=== PATIENT | female | born 1970 ===

== ENCOUNTER 2016-10-25 10:16 | Emergency (ER) | payer SELFPAY ==
[2016-10-25] MEDS ORDERED: Lidocaine 1% Inj (20ml) ONE (11:05)
--- NOTE | 2016-10-25 11:31 | ED PDOC ---
HPI: Skin/Bite Injury Time Seen by Provider: 10/25/16 10:37 Chief Complaint (Nursing): Abnormal Skin Integrity Chief Complaint (Provider): Abscess History Per: Patient Additional Complaint(s): Patient is a 46 yo female, no PMH, presents to ED with c.o abscess noted to right side of face x 1 month. denies fevers. Past Medical History Reviewed: Nursing Documentation, Vital Signs - Medical History PMH: No Chronic Diseases - Surgical History Surgical History: No Surg Hx - Family History Family History: States: No Known Family Hx - Home Medications Home Medications: Ambulatory Orders Medication Instructions Recorded Methylprednisolone [Medrol Dose 4 mg PO DAILY #21 mg 05/30/16 Pack (21 tabs)] Clindamycin [Cleocin] 300 mg PO BID #14 cap 10/25/16 Ibuprofen [Motrin] 600 mg PO Q6 #20 tab 10/25/16 Mupirocin 2% Cream [Bactroban 30 applic TOP BID #1 tube 10/25/16 Cream] - Allergies Allergies/Adverse Reactions: Allergies Allergy/AdvReac Type Severity Reaction Status Date / Time acetaminophen [From Percocet] Allergy VOMITING Verified 05/30/16 16:48 oxycodone HCl [From Percocet] Allergy VOMITING Verified 05/30/16 16:48 Penicillins Allergy RASH Verified 05/30/16 16:48 Review of Systems ROS Statement: Except As Marked, All Systems Reviewed And Found Negative Skin: Positive for: Other (abscess) Physical Exam - Reviewed Nursing Documentation Reviewed: Yes Vital Signs Reviewed: Yes - Physical Exam Appears: Positive for: Well, Non-toxic, No Acute Distress Head Exam: Positive for: ATRAUMATIC, NORMAL INSPECTION, NORMOCEPHALIC Skin: Positive for: Normal Color, Warm, DRY Eye Exam: Positive for: EOMI, Normal appearance, PERRL ENT: Positive for: Normal ENT Inspection Neck: Positive for: Normal, Painless ROM Cardiovascular/Chest: Positive for: Regular Rate, Rhythm Respiratory: Positive for: CNT, Normal Breath Sounds Gastrointestinal/Abdominal: Positive for: Normal Exam, Bowel Sounds, Soft Back: Positive for: Normal Inspection Extremity: Positive for: Normal ROM Neurologic/Psych: Positive for: Alert, Oriented Comments: tender, fluctuant, erythematous 2 cm pustule noted to right temporal area, no surrounding edema or erythema Medical Decision Making Medical Decision Making: Site incised and drained by tag writer. Advised warm compresses and antibiotics as directed. follow up with derm or plastics. return to ED with any concerns Disposition - Clinical Impression Clinical Impression: Sebaceous cyst - Disposition Referrals: Yony Mckeon MD [Staff Provider] - Disposition Time: 11:31 Condition: STABLE Prescriptions: Clindamycin [Cleocin] 300 mg PO BID #14 cap Ibuprofen [Motrin] 600 mg PO Q6 #20 tab Mupirocin 2% Cream [Bactroban Cream] 30 applic TOP BID #1 tube Instructions: Abscess (ED) Forms: [employer] (Albanian) Print Language: CITIZEN OF [place] Incision and Drainage - Time Time Performed: :31 - Time Out Time Out: Side verified, Site verified - Consent obtained Consent obtained: Verbal - Performed by Performed by: Mid-level Provider - Indications Indications: Cyst - Contraindications Contraindications: None - Location Location: Right - Anesthetic Technique Anesthetic Technique: Local - Anesthetic Anesthetic: Lidocaine 1% - Procedure Procedure: Usual prep and drape, # scalpel used (11) - Drained Drained: ml pus (3) - Post-procedure Post procedure: Dressed - Complications Complications: None
[2016-10-25] MEDS ORDERED: Lidocaine 2% Inj (20ml) SC ONE (11:47)
== END 2016-10-25 11:49 | disposition home or self-care (01) ==
LOC: H.ER 10:16
DX: L72.3 Sebaceous cyst (principal); Z88.0 Allergy status to penicillin

== ENCOUNTER 2018-01-19 17:27 | Emergency (ER) | payer SELFPAY ==
--- NOTE | 2018-01-19 18:02 | ED PDOC ---
HPI: Female Pain Time Seen by Provider: 01/19/18 17:57 Chief Complaint (Nursing): Female Genitourinary Chief Complaint (Provider): labial cyst History Per: Patient History/Exam Limitations: no limitations Onset/Duration Of Symptoms: Days (5 days) Additional Complaint(s): Pt. with tender left labia with a lump. States is painful. No dc. No dysuria. Pt. with vaginal bleeding for 3 weeks. States her period has continued from December 24 when her usual period was. No pelvic pain, abd pain, nausea, vomit, diarrhea, weakness, headaches, back pain. Past Medical History Reviewed: Nursing Documentation, Vital Signs Vital Signs: Last Vital Signs Temp 98.5 F 01/19/18 17:51 Pulse 101 H 01/19/18 17:51 Resp 20 01/19/18 17:51 BP 124/79 01/19/18 17:51 Pulse Ox 100 01/19/18 17:51 - Medical History PMH: No Chronic Diseases - Surgical History Surgical History: - Family History Family History: States: Unknown Family Hx - Living Arrangements Living Arrangements: With Family - Social History Alcohol: None Drugs: Denies - Home Medications Home Medications: Ambulatory Orders Medication Instructions Recorded Methylprednisolone [Medrol Dose 4 mg PO DAILY #21 mg 05/30/16 Pack (21 tabs)] Clindamycin [Cleocin] 300 mg PO BID #14 cap 10/25/16 Ibuprofen [Motrin] 600 mg PO Q6 #20 tab 10/25/16 Mupirocin 2% Cream [Bactroban 30 applic TOP BID #1 tube 10/25/16 Cream] Ibuprofen [Motrin] 600 mg PO TID 7 Days tab 01/19/18 - Allergies Allergies/Adverse Reactions: Allergies Allergy/AdvReac Type Severity Reaction Status Date / Time acetaminophen [From Percocet] Allergy VOMITING Verified 05/30/16 16:48 oxycodone HCl [From Percocet] Allergy VOMITING Verified 05/30/16 16:48 Penicillins Allergy RASH Verified 05/30/16 16:48 Review of Systems ROS Statement: Except As Marked, All Systems Reviewed And Found Negative Genitourinary Female: Positive for: Vaginal Bleeding, Other (labial pain) Physical Exam - Reviewed Nursing Documentation Reviewed: Yes Vital Signs Reviewed: Yes - Physical Exam Appears: Positive for: Non-toxic, No Acute Distress Head Exam: Positive for: ATRAUMATIC, NORMAL INSPECTION, NORMOCEPHALIC Skin: Positive for: Normal Color, Warm, DRY Neck: Positive for: Normal, Painless ROM Cardiovascular/Chest: Positive for: Regular Rate, Rhythm Respiratory: Positive for: CNT, Normal Breath Sounds Gastrointestinal/Abdominal: Positive for: Normal Exam, Soft. Negative for: Tenderness Pelvic Exam: Negative for: External Exam Normal (L lower labia with 2.5cm diameter cyst in the mucosal area; tender.) Back: Positive for: Normal Inspection. Negative for: L CVA Tenderness, R CVA Tenderness Extremity: Positive for: Normal ROM Neurologic/Psych: Positive for: Alert, Oriented - Laboratory Results Result Diagrams: 01/19/18 20:05 01/19/18 20:05 Interpretation Of Abn Labs: 7.6 hg - ECG O2 Sat by Pulse Oximetry: 100 Pulse Ox Interpretation: Normal - Progress ED Course And Treament: 1899: OBGYN saw pt. States not indicated to I and D at this time. Fu with clinic. 2047: Stable. Refused fluids and pain meds. Pt. with no dizziness. Fu with pcp and obgyn. Made aware of low hg. Does not need transfusion at this time. Disposition - Clinical Impression Clinical Impression: Bartholin cyst, Anemia - Patient ED Disposition Is Patient to be Admitted: No Counseled Patient/Family Regarding: Studies Performed, Diagnosis, Need For Followup - Disposition [facility]errals: [facility] - 01/21/18 [facility] [Outside[facility] - 01/21/18 Disposition: Routine/Home Disposition Time: 20:51 Condition: STABLE Additional Instructions: Return if not better in 3 days. Prescriptions: Ibuprofen [Motrin] 600 mg PO TID 7 Days tab Instructions: Bartholin's Gland Cyst, Anemia Caused by Low Iron, Adult (DC) Forms: [employer] (Kinyarwanda) Print Language: PERSIAN
[2018-01-19] MEDS ORDERED: Sodium Chloride 0.9% 1,000 ML IV STA (18:12)
--- NOTE | 2018-01-19 18:59 | CP.PCM.CON ---
History of Present Illness - History of Present Illness History of Present Illness: Pt is a 47 yo with a history of left sided vaginal pain since 01/14. Patient reports she started seeing some swelling on the bottom of the left labia, has been slightly more difficult to walk and sit. Pain relieved with Motrin. Otherwise patient denies fever, no N/V, no irregular vaginal discharge, LMP was 16 with on/off bleeding, no LOC, no dizziness. Review of Systems - Review of Systems All systems: reviewed and no additional remarkable complaints except Past Patient History - Infectious Disease Hx of Infectious Diseases: None - Past Social History Alcohol: None Drugs: Denies - CARDIAC Hx Cardiac Disorders: No - PULMONARY Hx Respiratory Disorders: No - NEUROLOGICAL Hx Neurological Disorder: No - HEENT Hx HEENT Problems: No - RENAL Hx Chronic Kidney Disease: No - ENDOCRINE/METABOLIC Hx Endocrine Disorders: No - HEMATOLOGICAL/ONCOLOGICAL Hx Blood Disorders: No - MUSCULOSKELETAL/RHEUMATOLOGICAL Other/Comment: left ankle tendonitis - GASTROINTESTINAL Hx Gastrointestinal Disorders: No - GENITOURINARY/GYNECOLOGICAL Hx Genitourinary Disorders: No - PSYCHIATRIC Hx Psychophysiologic Disorder: No Hx Substance Use: No - SURGICAL HISTORY Hx Section: Yes (x2) - ANESTHESIA Hx Anesthesia: Yes Hx Anesthesia Reactions: No Meds Allergies/Adverse Reactions: Allergies Allergy/AdvReac Type Severity Reaction Status Date / Time acetaminophen [From Percocet] Allergy VOMITING Verified 05/30/16 16:48 oxycodone HCl [From Percocet] Allergy VOMITING Verified 05/30/16 16:48 Penicillins Allergy RASH Verified 05/30/16 16:48 - Medications Medications: Current Medications Sodium Chloride (Sodium Chloride 0.9%) 1,000 mls @ 1,000 mls/hr IV .Q1H STA Stop: 01/19/18 19:11 Physical Exam - Constitutional Appears: Well, Non-toxic, No Acute Distress - Head Exam Head Exam: ATRAUMATIC - Eye Exam Eye Exam: Normal appearance - Respiratory Exam Respiratory Exam: Clear to Auscultation Bilateral, NORMAL BREATHING PATTERN - Cardiovascular Exam Cardiovascular Exam: REGULAR RHYTHM, +S1, +S2 - GI/Abdominal Exam GI & Abdominal Exam: Normal Bowel Sounds, Soft - Exam Additional comments: left labia has small Bartholian cyst, painful to touch, deep, no drainage, no errythema, no vaginal bleeding noted on exam, no other lesions/masses present - Extremities Exam Extremities exam: Positive for: normal inspection Results - Vital Signs Recent Vital Signs: Last Vital Signs Temp 98.5 F 01/19/18 17:51 Pulse 101 H 01/19/18 17:51 Resp 20 01/19/18 17:51 BP 124/79 01/19/18 17:51 Pulse Ox 100 01/19/18 18:23 Assessment & Plan - Assessment and Plan (Free Text) Assessment: A/P 47 yo with small Bartholian cyst 1. Recommend conservative management at this time. No induration noted and cyst is small, although still painful to touch. Recommend sitz baths, Motrin prn pain. 2. If cyst get much more uncomfortable, recommend to patient to follow up in outpatient clinic for drainage. No antibiotcs needed 3. No bleeding noted on exam, patient asymptomatic, VSS. Patient should follow up with OBGYN as outpatient. Pt reported otherwise her periods have been normal. 4. Consultation appreciated - Date & Time Date: 01/19/18 Time: 18:59
[2018-01-19 20:19] LABS: BASO # 0.1 K/uL (0.0-0.2); BASO % 1.2 % (0.0-2.0); EOS # 0.3 K/uL (0.0-0.7); EOS % 2.9 % (0.0-4.0); HEMOGLOBIN 7.6 g/dL (12.0-16.0); LYMPH # 2.6 K/uL (1.0-4.3); LYMPH % 25.4 % (20.0-40.0); MEAN CELL VOLUME 59.4 fl (81.0-99.0); MEAN CORPUSCULAR HEMOGLOBIN 17.8 pg (27.0-31.0); MEAN PLATELET VOLUME 6.4 fl (7.2-11.7); MONO # 0.7 K/uL (0.0-0.8); MONO % 7.1 % (0.0-10.0); NEUT # 6.4 K/uL (1.8-7.0); NEUT % 63.4 % (50.0-75.0); RBC 4.25 Mil/uL (3.80-5.20); RED CELL DISTRIBUTION WIDTH 18.7 % (11.5-14.5); WHITE BLOOD COUNT 10.1 K/uL (4.8-10.8)
[2018-01-19 20:31] LABS: BLOOD UREA NITROGEN 10 mg/dl (7-17); CALCIUM 8.6 mg/dL (8.4-10.2); GFR AFRICAN-AMERICAN > 60; GFR NON-AFRICAN AMERICAN > 60
[2018-01-19 21:23] VITALS: BP 118/73; PULSE 80; RESP 16; TEMP 98; O2SAT 98
== END 2018-01-19 21:23 | disposition home or self-care (01) ==
LOC: H.ER 17:27
DX: N75.0 Cyst of Bartholin's gland (principal); D64.9 Anemia, unspecified